=== PATIENT | female | born 1970 | race Caucasian/White ===

== ENCOUNTER 2017-05-10 10:12 | Inpatient (IN) | payer OTHER, SELFPAY ==
[~2017-05-10] VITALS: Ht 170.2 cm; Wt 76.6 kg
[2017-05-10] VITALS (11 sets, daily range): BP systolic 132–148; BP diastolic 72–79
[2017-05-10] MEDS ORDERED: SODIUM CHLORIDE FLUSH 10ML SYR IVF ONE (11:00)
[2017-05-10] MEDS ORDERED: Blood pressure PO (11:02)
[2017-05-10] MEDS ORDERED: Depression PO (11:02)
[2017-05-10 11:20] LABS: INTERNATIONAL NORMALIZED RATIO 0.94 (0.93-1.1); PROTHROMBIN TIME 9.7 Seconds (9.6-11.5)
[2017-05-10 11:26] LABS: ALANINE AMINOTRANSFERASE 28 U/L (12-78); ALBUMIN 3.7 g/dL (3.4-5.0); ANION GAP 8 mmol/L (5-15); CALCIUM 8.7 mg/dL (8.5-10.1); CHLORIDE 106 mmol/L (98-107); CREATININE 0.79 mg/dL (0.55-1.02)
[2017-05-10 11:28] LABS: ALKALINE PHOSPHATASE 64 U/L (45-117); BILIRUBIN,TOTAL 0.2 mg/dL (0.2-1.0); TOTAL PROTEIN 7.8 g/dL (6.4-8.2)
[2017-05-10 11:35] LABS: MEAN CORPUSCULAR HEMOGLOBIN 19.6 pg (27.0-34.8); MEAN CORPUSCULAR VOLUME 65.3 fL (80-100); MEAN PLATELET VOLUME 6.5 fL (7.4-10.4); PLATELET COUNT 398 x10^3/uL (130-400); RED BLOOD COUNT 2.63 x10^6/uL (3.82-5.3)
[2017-05-10 11:57] LABS: BASOPHILS # (AUTO) 0.06 x10^3/uL (0-0.1); BASOPHILS % (AUTO) 1 % (0-1); EOSINOPHILS # (AUTO) 0.03 x10^3/uL (0-0.4); EOSINOPHILS % (AUTO) 0 % (1-7); LYMPHOCYTES # (AUTO) 1.86 x10^3/uL (1-3.4); LYMPHOCYTES % (AUTO) 24 % (22-44); MD MORPH REVIEW ONLY; MONOCYTES # (AUTO) 0.79 x10^3/uL (0.2-0.8); MONOCYTES % (AUTO) 10 % (2-9); NEUTROPHILS # (AUTO) 4.94 x10^3/uL (1.8-6.8); NEUTROPHILS % (AUTO) 64 % (42-75)
[2017-05-10 11:58] LABS: HYPOCHROMIA 3+
[2017-05-10 11:59] LABS: <PLATELET ESTIMATE> ADEQUATE; <PLT MORPHOLOGY> NORMAL PLT MORPH; POLYCHROMASIA 1+
[2017-05-10 12:00] LABS: ANISOCYTOSIS 2+; MICROCYTOSIS 2+; TEAR DROPS 1+
[2017-05-10] MEDS ORDERED: PANTOPRAZOLE 40 MG IV IVPush ONE (12:00)
[2017-05-10] MEDS ORDERED: ESCI10TA PO (12:00)
[2017-05-10] MEDS ORDERED: METO-93 PO (12:00)
[2017-05-10 12:01] LABS: OVALOCYTES 1+
[2017-05-10 12:02] LABS: STOMATOCYTES 1+
[2017-05-10] MEDS ORDERED: POLYETHYLENE GLYCOL 17 GM PACKET PO PRN (13:00)
[2017-05-10] MEDS ORDERED: DOCUSATE 100 MG CAPSULE PO PRN (13:00)
[2017-05-10] MEDS ORDERED: hydrALAzine 20 MG/ML, 1ML IVPush PRN (13:00)
[2017-05-10] MEDS: PANTOPRAZOLE 40 MG IV IVPush SCH ×2 (13:00→20:05)
[2017-05-10] MEDS ORDERED: ONDANSETRON ODT 4 MG PO PRN (13:00)
[2017-05-10] MEDS ORDERED: BISACODYL 10 MG SUPP PR PRN (13:00)
[2017-05-10] MEDS: ACETAMINOPHEN 325 MG TABLET PO PRN ×2 (17:28→22:35)
[2017-05-10] MEDS: SODIUM CHLORIDE 0.9% 1,000 ML IV SCH (20:04)
[2017-05-11 02:10] VITALS: BP 114/68
[2017-05-11 07:54] VITALS: BP 131/73
[2017-05-11] MEDS ORDERED: METOPROLOL SUCCINATE 50 MG TAB.ER.24H PO SCH (09:00)
[2017-05-11] MEDS: PANTOPRAZOLE 40 MG IV IVPush SCH (09:01)
[2017-05-11] MEDS: SODIUM CHLORIDE 0.9% 1,000 ML IV SCH (09:02)
[2017-05-11 12:42] VITALS: BP 132/70
[2017-05-11] MEDS ORDERED: IRON DEXTRAN IV PER PHARMACY IV PRN (13:00)
[2017-05-11] MEDS ORDERED: IRON DEXTRAN COMPLEX 25 MG in SODIUM CHLORIDE 0.9% 50 ML IV ONE (13:00)
[2017-05-11] MEDS ORDERED: EPINEPHRINE 1 MG/ML, 1ML ONE (13:04)
[2017-05-11 13:09] VITALS: BP 131/75
[2017-05-11 13:22] VITALS: BP 132/77
[2017-05-11] MEDS ORDERED: IRON DEXTRAN COMPLEX 1,400 MG in SODIUM CHLORIDE 0.9% 250 ML IV ONE (15:00)
[2017-05-11 18:30] VITALS: BP 101/63
== END 2017-05-11 20:57 | disposition home or self-care (01) | DRG 379 ==
LOC: ED 11:49 → 3NE 11:50 → ED 13:14
PROVIDERS: ADMIT Hospitalist; ATTEND Hospitalist
PROC: 30233N1 Transfusion of Nonautologous Red Blood Cells into Peripheral Vein, Percutaneous Approach (ICD-10-PCS; principal; 2017-05-10)
DX: K92.1 Melena (principal); D50.9 Iron deficiency anemia, unspecified; F32.9 Major depressive disorder, single episode, unspecified; N85.8 Other specified noninflammatory disorders of uterus; N92.0 Excessive and frequent menstruation with regular cycle; I10 Essential (primary) hypertension; N93.9 Abnormal uterine and vaginal bleeding, unspecified; Z83.3 Family history of diabetes mellitus
CPT/HCPCS: 36415; 36430; 76830; 80053; 82728; 83540; 83550; 83690; 84443; 84466; 84703; 85014; 85018; 85025; 85610; 86850; 86900; 86923; 93005; J1750; C9113; J7030; J7050; P9016